=== PATIENT | female | born 1950 | race Caucasian/White ===

== ENCOUNTER 2016-12-26 07:54 | Emergency (ER) | payer OTHER ==
[2016-12-26 07:59] VITALS: TEMP 97.7
--- NOTE | 2016-12-26 08:07 | EDPHY ---
H & P Stated Complaint: EXTREME BACK PAIN Time Seen by Provider: 12/26/16 08:06 - Personal History Current Tetanus/Diphtheria Vaccine: Yes Current Tetanus Diphtheria and Acellular Pertussis (TDAP): Yes Tetanus Vaccine Date: 2009 - Medical/Surgical History Hx Asthma: Yes Hx Chronic Respiratory Disease: No Hx Diabetes: Yes Hx Cardiac Disease: No Hx Renal Disease: No Hx Cirrhosis: No Hx Alcoholism: No Hx HIV/AIDS: No Hx Splenectomy or Spleen Trauma: No Other PMH: PMH- PRE-DIABETIC, ASTHMA, LUMABR RADICULOPATHY, DDD, ARTERIOLISTHESIS. PSH- SINUSES - Social History Smoking Status: Never smoked Constitutional: Initial Vital Signs Temperature (C) 36.5 C 12/26/16 07:54 Heart Rate 83 12/26/16 07:54 Respiratory Rate 16 12/26/16 07:54 Blood Pressure 148/91 H 12/26/16 07:54 O2 Sat (%) 95 12/26/16 07:54 O2 Delivery Mode Room Air Allergies/Adverse Reactions: phenobarbital Allergy (Unknown, Verified 11/19/12 17:41) Home Medications: Medication Instructions Recorded ALBUTEROL SULFATE 12/26/16 Ascorbic Acid 12/26/16 Budesonide 12/26/16 CALCIUM CARBONATE 12/26/16 Cyanocobalamin (Vitamin B-12) 12/26/16 DOCOSAHEXANOIC ACID/EPA 12/26/16 Ergocalciferol (Vitamin D2) 12/26/16 FLUTICASONE/SALMETEROL 12/26/16 Ibuprofen [Motrin] 800 mg PO Q8 #20 tab 12/26/16 Magnesium 12/26/16 Metformin HCl 12/26/16 methylPREDNISolone [Medrol Dose 1 each PO AD #1 ea 12/26/16 Ever] oxyCODONE IR [Oxycodone Ir (*)] 5 - 10 mg PO Q6 PRN #20 tab 12/26/16 Medical Decision Making ED Course/Re-evaluation: CHIEF COMPLAINT: Back pain HISTORY OF PRESENT ILLNESS: The patient is a 66 y/o female arriving with her complaining of bilateral lower back pain for the last several weeks, significantly worsening this morning. She was evaluated by her PCP 2 weeks ago who performed x-rays that showed mild lumbar disc degeneration. She followed up again with her PCP this week who instructed her to use topical lidocaine, ibuprofen, and start physical therapy. Ibuprofen improves her pain for a short time. Her pain is now in her left buttock and radiating down to her mid thigh. The radiating pain is associated with decreased sensation and weakness. Her symptoms are significantly aggravated by sitting, but manageable when standing or lying down. This morning she could not stand up off the toilet due to the pain and felt near-syncopal for a few minutes. Her reports the normally stoic patient was in tears and unable to move due to the pain. She denies any trauma or obvious precipitating weakness. She denies bowel or bladder incontinence. REVIEW OF SYSTEMS: A 10 point review of systems was performed and is negative with the exception of the elements mentioned in the history of present illness. PHYSICAL EXAM: HR, BP, O2 Sat, RR. Temp noted General Appearance: Alert, well hydrated, appropriate, and non-toxic appearing , appears uncomfortable standing in the room Head: Atraumatic without scalp tenderness or obvious injury Eyes: Pupils equal, round, reactive to light and accommodation, EOMI, no trauma , no injection. Ears: Clear bilaterally, no perforation, normal landmarks Nose: Atraumatic, no rhinorrhea, clear. Neck: Supple, nontender. Respiratory: No respiratory distress. Cardiovascular: Regular rate and rhythm. Good capillary refill all extremities. Gastrointestinal: Abdomen is soft, nontender, non-distended, no masses, no rebound, no guarding, no peritoneal signs. Musculoskeletal: Active ROM of all extremities, though pain with dorsiflexion of left foot, atraumatic. Neurological: Alert, appropriate, and interactive. The patient has normal DTRs and non-focal cranial nerves, motor, sensory, and cerebellar exam. Skin: No rashes, good turgor, no nodules on palpation. Past medical history: asthma, X-ray 12/17/16 showed: anterolisthesis of L5, mild lumbar disc degeneration, moderate to severe lower lumbar spine facet arthrosis Past surgical history: sinus surgery Family history: noncontributory Social history: at bedside. Lives in [place]. Nonsmoker. DIAGNOSTICS/PROCEDURES/CRITICAL CARE TIME: Study: MRI of the: Lumbar spine Indication: Weakness, pain Results: MRI scan of the body parts was obtained. The results of the study are L3-L4 left paracentral herniation with possible free fragment. The study was read by the radiologist, Dr. Hartman. I viewed the images myself on the PACS system. DIFFERENTIAL DIAGNOSIS: The differential diagnosis for the patient's back pain included but was not limited to musculoskeletal pain, epidural abscess, herniated disk, spinal fracture, and intra-abdominal causes including urinary system. MEDICAL DECISION MAKING: This is a 66 y/o female presenting with a several week history of worsening low back pain with new onset left radiculopathy over the last day with associated subjective weakness and decreased sensation. On assessment, she is uncomfortable and unable to sit down due to pain. Dorsiflexion of her left foot causes worsening symptoms. Her strength is objectively normal, though exam is limited by pain. No evidence of acute cauda equina syndrome. Plan for MRI to rule out acute process requiring immediate intervention. 1055: Reevaluation patient and discussed imaging results. I answered all her questions. She will be discharged with scripts for Medrol, OxyIR, and Motrin with a referral to neurosurgery for follow up. Return precautions given. She is comfortable with this plan. - Data Points Medications Given: Discontinued Medications Oxycodone/Acetaminophen (Percocet 5/325) 1 tab PO EDNOW ONE Stop: 12/26/16 08:40 Last Admin: 12/26/16 08:46 Dose: 1 tab Oxycodone/Acetaminophen (Percocet 5/325) 1 tab PO EDNOW ONE Stop: 12/26/16 09:38 Last Admin: 12/26/16 09:42 Dose: 1 tab Departure - Departure Disposition: Home, Routine, Self-Care Clinical Impression: Left lumbar radiculopathy, Lumbar disc herniation with radiculopathy Condition: Good Instructions: Lumbar Radiculopathy (ED) Additional Instructions: 1. Take Medrol dose pack as prescribed. 2. Use OxyIR as prescribed when needed for pain 3. Take 800mg Motrin as prescribed for pain and inflammation up to 3 times daily. I recommend trying this without the OxyIR first and using OxyIR if pain is uncontrolled with Motrin. 4. Follow up with neurosurgery on Wednesday. 5. Stay active as you can tolerate to improve rate of healing. 6. Return to the ED for inability to walk, numbness around your genitals, bowel or bladder incontinence, or other worsening of condition. Referrals: Samantha Castro MD [Primary Care Provider] - As per Instructions Sung Escobar MD [Medical Doctor] - As per Instructions Prescriptions: Ibuprofen [Motrin] 800 mg PO Q8 #20 tab methylPREDNISolone [Medrol Dose Ever] 1 each PO AD #1 ea oxyCODONE IR [Oxycodone Ir (*)] 5 - 10 mg PO Q6 PRN #20 tab PRN Reason: Pain, Severe Report Scribed for: Jonny Holbrook Report Scribed by: Mellissa Acosta Date of Report: 12/26/16 Time of Report: 08:41
[2016-12-26] MEDS ORDERED: OXYCODONE/APAP 5/325 TAB PO ONE ×2 (08:39→09:37)
[2016-12-26 11:14] VITALS: BP 152/79; PULSE 75; RESP 18; O2SAT 96
== END 2016-12-26 11:12 | disposition home or self-care (01) ==
DX: M51.16 Intervertebral disc disorders with radiculopathy, lumbar region (principal); J45.909 Unspecified asthma, uncomplicated; E11.9 Type 2 diabetes mellitus without complications